=== PATIENT | female | born 1995 | race Caucasian/White ===

== ENCOUNTER 2019-11-18 08:23 | Emergency (ER) | payer OTHER ==
[2019-11-18 08:31] VITALS: BMI 38.0
--- NOTE | 2019-11-18 08:59 | PDOC ---
History of Present Illness - General Chief Complaint: Sore Throat Stated Complaint: SORE THROAT/CONGESTION Time Seen by Provider: 11/18/19 08:37 - History of Present Illness Initial Comments: 24 YOF h/o recurrent streptococcal pharyngitis infection presents with sore neck and throat of one day duration. Patient reports that her throat is sore such that she has difficulty swallowing liquids and foods. She also reports some tenderness/ soreness of anterior/ lateral neck. She also reports some chills and night sweats last night. She says that she has a history of recurrent strep throat infections, approximately 2 per year. Denies cough, fever, chest pain, SOB, N/V/D. Reports recent travel to [place] but denies known exposure to any sick contacts including persons who tested positive for COVID-19. 11/18/19 12:18 Past History - Medical History Allergies/Adverse Reactions: Allergies Allergy/AdvReac Type Severity Reaction Status Date / Time No Known Allergies Allergy Verified 11/18/19 08:25 Home Medications: Ambulatory Orders Ibuprofen [Advil -] 400 mg PO QID PRN 11/18/19 COPD: No - Reproductive History Is Patient Now?: No - Psycho-Social/Smoking History Smoking History: Current some day smoker Information on smoking cessation initiated: Yes - Substance Abuse Hx (Audit-C & DAST Scrn) How often the patient has a drink containing alcohol: Monthly or less Score: In Men: 4 or > Positive; In Women: 3 or > Positive: 1 Screen Result (Pos requires Nsg. Audit-10AR): Negative In the last yr the pt used illegal drug/Rx for NonMed reason: No Score: Yes response is considered Positive: 0 Screen Result (Positive result requires Nsg. DAST-10): Negative Review of Systems - Review of Systems Able to Perform ROS?: Yes Constitutional: Yes: Symptoms Reported, See HPI HEENTM: Yes: Symptoms Reported, See HPI Respiratory: Yes: Symptoms reported, See HPI Cardiac (ROS): Yes: Symptoms Reported, See HPI ABD/GI: Yes: See HPI : Yes: See HPI Musculoskeletal: Yes: See HPI Integumentary: Yes: See HPI Neurological: Yes: See HPI Endocrine: Yes: See HPI Hematologic/Lymphatic: Yes: See HPI *Physical Exam - Vital Signs Last Vital Signs Temp Pulse Resp BP Pulse Ox 99.8 F H 113 H 22 H 143/85 96 11/18/19 08:27 11/18/19 08:27 11/18/19 08:27 11/18/19 08:27 11/18/19 08:27 - Physical Exam General Appearance: Yes: Nourished, Appropriately Dressed, Mild Distress HEENT: positive: EOMI, Normal ENT Inspection, Normal Voice, Pharyngeal Erythema, Tonsillar Exudate, Tonsillar Erythema Neck: positive: Trachea midline, Normal Thyroid, Lymphadenopathy (R), Lymphadenopathy (L), Tender lateral Respiratory/Chest: positive: Lungs Clear, Normal Breath Sounds Cardiovascular: positive: Regular Rhythm, Regular Rate, S1, S2 Gastrointestinal/Abdominal: positive: Flat, Soft Musculoskeletal: positive: Normal Inspection Extremity: positive: Normal Capillary Refill, Normal Inspection Integumentary: positive: Dry, Warm Neurologic: positive: telephone mechanic II-XII NML intact, Fully Oriented, Alert, Normal Mood/Affect, Normal Response, Motor Strength 5/5 Medical Decision Making - Medical Decision Making 24 YOF h/o recurrent streptococcal pharyngitis infection presents with sore neck and throat of one day duration. Patient reports that her throat is sore such that she has difficulty swallowing liquids and foods. She also reports some tenderness/ soreness of anterior/ lateral neck. She also reports some chills and night sweats last night. She says that she has a history of recurrent strep throat infections, approximately 2 per year. Denies cough, fever, chest pain, SOB, N/V/D. Reports recent travel to [place] but denies known exposure to any sick contacts including persons who tested positive for COVID-19. On arrival patients temp was 99.8, HR 111. RR22. Physical exam reveals tenderness overlying cervical lymph nodes, tonsilar swelling and pharyngeal erythema, as well as bila teral tonsilar exudates. ddx: strep pharyngitis, viral pharyngitis, cocksackie infection, mononucleosis plan: pharyngeal swab w/ rapid strep test, tylenol, motrin, decedron, and amoxicillin. reassess: rapid strep positive, will give patient IM penicillin and dc patient w/ return precautions dispo: dc to home 11/18/19 12:22 11/18/19 12:25 Discharge - Discharge Information Problems reviewed: Yes Clinical Impression/Diagnosis: Strep pharyngitis Condition: Improved Disposition: HOME - Follow up/Referral Referrals: Jah Aguayo MD [Staff Physician] - - Patient Discharge Instructions Patient Printed Discharge Instructions: DI for Strep Throat Additional Instructions: 1) Please follow-up with your primary care doctor in the next 1-2 days. Please call tomorrow for for any urgent issues. 2) You were given a copy of the tests performed today. Please bring the results with you and review them with your primary care doctor. You have a positive strep infection. You were treated with an IM injection of Bicillin 3) If you have any worsening of symptoms or any other concerns please return to the ED immediately. Return if worsening symptoms including fevers, headache, vomiting, visual or hearing disturbances, abdominal pain, chest pain, shortness of breath, syncope, dehydration, inability to take things by mouth/vomiting, alt ered mental status, or worsening concerning symptoms. You may take Tylenol/ibuprofen as needed for pain control. Stay well hydrated and rest adequately. Make an appointment. If you cannot follow-up with your ENT specialist which is provided. Please return to the ED if any concerning findings occur - Post Discharge Activity
[2019-11-18] MEDS ORDERED: ACETAMINOPHEN 325 MG TABLET (FP) PO ONE (09:12)
[2019-11-18] MEDS ORDERED: IBUPROFEN 200 MG TABLET PO ONE (09:12)
[2019-11-18] MEDS ORDERED: DEXAMETHASONE 4 MG TABLET (FP) PO ONE (09:13)
[2019-11-18] MEDS ORDERED: ACETAMINOPHEN 325 MG TABLET (FP) ONE (09:17)
[2019-11-18] MEDS ORDERED: DEXAMETHASONE SOD PHOSPHATE 10 MG/1 ML VIAL ONE (09:17)
[2019-11-18] MEDS ORDERED: IBUPROFEN 600 MG TABLET (FP) PO ONE (09:17)
[2019-11-18] MEDS ORDERED: PENICILLIN G BENZATHINE 1,200,000 UNIT/2 ML PFS IM ONE ×2 (09:56→10:05)
--- NOTE | 2019-11-18 09:56 | PDOC ---
Documentation entered by Guerline Franco SCRIBE, acting as scribe for Crissy Orellana MD. Crissy Orellana MD: This documentation has been prepared by the Salvador hurtado Brenda, SCRIBE, under my direction and personally reviewed by me in its entirety. I confirm that the documentation accurately reflects all work, treatment, procedures, and medical decision making performed by me. Attending Attestation - Resident Resident Name: SivaGuanaco kunz - ED Attending Attestation I have performed the following: I have examined & evaluated the patient, The case was reviewed & discussed with the resident, I agree w/resident's findings & plan, Exceptions are as noted - HPI HPI: 11/18/19 09:15 24YOF with a significant PMH of frequent throat infections presents to the ED for evaluation of a sore throat, chills and sinus congestion x 3 days. feels similar to prior strep infections. gets twice a year of strep pharyngitis. Denies fever, chills, chest pain, SOB, palpitation, dizziness, weakness, N, V, D, abdominal pain Past Medical History: Throat infections 2x a year Social history: Current some days smoker. Meds: as documented in EMR 11/18/19 09:56 11/18/19 10:28 - Physicial Exam PE: 11/18/19 09:54 NCAT, PERRL, EOMI, clear conjunctiva, anicteric, moist mucus membranes, +tonsillar hypertrophy and exudates,erythematous. Airway patent, normal phonation. Uvula midline. no tonsillar hypertrophy. +b/l maxillary sinus tenderness +tachy lungs clear WWP no abdominal tenderness noted - Medical Decision Making 11/18/19 09:55 Vital Signs Temp Pulse Resp BP Pulse Ox 99.8 F H 113 H 22 H 143/85 96 11/18/19 08:27 11/18/19 08:27 11/18/19 08:27 11/18/19 08:27 11/18/19 08:27 Vital signs reviewed, low-grade temperature tachycardia. No respiratory distress, normal saturations 96% Differential diagnosis includes back viral versus strep pharyngitis. Clinically doubt deep space infection or abscess. No evidence of PROSTHETIC LAB TECHNICIAN. Strep test is positive, will treat empirically. Patient elects for Bicillin IM shot x1. No allergies are noted. Will provide. analgesia given also dexamethasone, feels much improved given her kissing tonsils airway is intact, breathing comfortably. Pt to be discharged in stable condition. Patient made aware of clinical impression, treatment recommendations and disposition plan, return precautions discussed (including but not limited to new or persistent/worsening symptoms, pain, fevers, or signs of infection, chest pain, respiratory distress, inability to tolerate oral intake, dehydration, syncope, or neurologic changes). Follow up with ENT specialist Dr Aguayo as recommended, follow up information provided, take medications as instructed for duration of time. continue with supportive care, avoid triggers and precipitants. All questions answered to patient's satisfaction and expressed understanding and comfort with this. At the time of discharge, the patient is alert, clinically improved, tolerating po and verbalizes understanding of instructions, satisfied with the care received and felt comfortable with the plan. Patient does not suffer from an acute life- threatening medical condition at this time and is safe for outpatient follow- up. 11/18/19 09:57 11/18/19 10:29 11/18/19 10:30 Discharge - Discharge Information Problems reviewed: Yes Clinical Impression/Diagnosis: Strep pharyngitis Condition: Improved Disposition: HOME - Admission No - Follow up/Referral Referrals: Jah Aguayo MD [Staff Physician] - - Patient Discharge Instructions Patient Printed Discharge Instructions: DI for Strep Throat Additional Instructions: 1) Please follow-up with your primary care doctor in the next 1-2 days. Please call tomorrow for for any urgent issues. 2) You were given a copy of the tests performed today. Please bring the results with you and review them with your primary care doctor. You have a positive strep infection. You were treated with an IM injection of Bicillin 3) If you have any worsening of symptoms or any other concerns please return to the ED immediately. Return if worsening symptoms including fevers, headache, vomiting, visual or hearing disturbances, abdominal pain, chest pain, shortness of breath, syncope, dehydration, inability to take things by mouth/vomiting, altered mental status, or worsening concerning symptoms. You may take Tylenol/ibuprofen as needed for pain control. Stay well hydrated and rest adequately. Make an appointment. If you cannot follow-up with your ENT specialist which is provided. Please return to the ED if any concerning findings occur - Post Discharge Activity
[2019-11-18 10:24] VITALS: BP 127/79
[2019-11-18 10:25] VITALS: PULSE 111; TEMP 98.6
== END 2019-11-18 10:35 | disposition home or self-care (01) ==
LOC: JER 08:23
DX: J02.0 Streptococcal pharyngitis (principal)
CPT/HCPCS: 87880; 99284-25